=== PATIENT | female | born 1950 | race Caucasian/White ===

== ENCOUNTER 2018-07-13 09:04 | Outpatient (RCR) | payer OTHER | END 2018-07-13 09:30 | disposition still patient (30) | LOC: PT 09:04 | DX: M54.2 Cervicalgia (principal) ==

== ENCOUNTER → 2021-01-09 | Outpatient (CLI) | payer MEDICARE, OTHER | LOC: RAD 07:25 | DX: J94.8 Other specified pleural conditions (principal) ==

== ENCOUNTER → 2021-02-27 | Outpatient (CLI) | payer MEDICARE, OTHER | LOC: RAD 12:36 | DX: R07.89 Other chest pain (principal); R05 Cough | CPT/HCPCS: Q9967 ==

== ENCOUNTER 2021-04-08 09:37 | Outpatient (RCR) | payer MEDICARE, OTHER | END 2021-04-16 17:00 | disposition home or self-care (01) | LOC: PT 09:37 | DX: M25.552 Pain in left hip (principal) ==

== ENCOUNTER 2021-05-13 07:47 | Outpatient (RCR) | payer MEDICARE, OTHER | END 2021-06-05 23:59 | disposition home or self-care (01) | LOC: PT 07:47 | DX: M70.62 Trochanteric bursitis, left hip (principal) ==

== ENCOUNTER 2021-06-09 09:00 | Outpatient (RCR) | payer MEDICARE, OTHER | END 2021-07-06 | disposition home or self-care (01) | LOC: PT | DX: M70.62 Trochanteric bursitis, left hip (principal) ==

== ENCOUNTER → 2021-07-23 | Day surgery (SDC) | payer MEDICARE, OTHER | LOC: MSO 07:07 | DX: Z12.11 Encounter for screening for malignant neoplasm of colon (principal); D12.5 Benign neoplasm of sigmoid colon; D12.8 Benign neoplasm of rectum; K62.1 Rectal polyp; I25.10 Atherosclerotic heart disease of native coronary artery without angina pectoris; E03.9 Hypothyroidism, unspecified; J45.909 Unspecified asthma, uncomplicated; G47.33 Obstructive sleep apnea (adult) (pediatric); F32.A Depression, unspecified; F41.9 Anxiety disorder, unspecified; Z99.89 Dependence on other enabling machines and devices; Z79.82 Long term (current) use of aspirin; Z87.891 Personal history of nicotine dependence; Z79.899 Other long term (current) drug therapy; Z79.01 Long term (current) use of anticoagulants; Z79.890 Hormone replacement therapy; Z90.710 Acquired absence of both cervix and uterus; Z98.51 Tubal ligation status; Z80.0 Family history of malignant neoplasm of digestive organs | CPT/HCPCS: 00811; J2704; J7120 ==

== ENCOUNTER 2023-01-04 08:00 | Outpatient (RCR) | payer MEDICARE, OTHER | END 2023-02-03 | disposition home or self-care (01) | LOC: PT | DX: M54.50 Low back pain, unspecified (principal); M25.569 Pain in unspecified knee ==

== ENCOUNTER 2023-06-20 09:18 | Outpatient (RCR) | payer MEDICARE, OTHER | END 2023-07-06 | disposition home or self-care (01) | LOC: PT | DX: M25.512 Pain in left shoulder (principal); M54.50 Low back pain, unspecified; Z98.890 Other specified postprocedural states ==

== ENCOUNTER 2023-07-07 08:29 | Outpatient (RCR) | payer MEDICARE, OTHER | END 2023-08-04 | disposition home or self-care (01) | LOC: PT | DX: M25.512 Pain in left shoulder (principal); M54.50 Low back pain, unspecified ==

== ENCOUNTER → 2023-07-15 | Outpatient (CLI) | payer MEDICARE, OTHER ==
[2023-07-15 12:06] LABS: CALCIUM 10.1 mg/dL (8.3-10.5)
== END ==
LOC: LAB 11:21
PROVIDERS: Family Medicine
DX: I25.10 Atherosclerotic heart disease of native coronary artery without angina pectoris (principal); E11.59 Type 2 diabetes mellitus with other circulatory complications; E03.4 Atrophy of thyroid (acquired)

== ENCOUNTER 2023-08-24 16:49 | Emergency (ER) | payer MEDICARE, OTHER ==
[~2023-08-24] VITALS: Ht 160 cm; Wt 94.1 kg
[2023-08-24] MEDS ORDERED: ISOSORBIDE DINI30 M1 PO (16:59)
[2023-08-24] MEDS ORDERED: CLOPIDOGREL PO (16:59)
[2023-08-24] MEDS ORDERED: UNITHROID150 MCG PO (16:59)
[2023-08-24] MEDS ORDERED: EZALLOR SPRINKL40 MG PO (17:00)
[2023-08-24] MEDS ORDERED: KAPSPARGO SPRIN25 MG PO (17:00)
[2023-08-24] MEDS ORDERED: GLUCOPHAGE PO (17:00)
[2023-08-24] MEDS ORDERED: CALCIUM500 M1 PO (17:01)
[2023-08-24] MEDS ORDERED: ASPIRIN 81M81 MG/TA2 PO (17:01)
[2023-08-24 17:38] LABS: ALBUMIN 4.2 g/dL (3.4-4.8); SODIUM 137 mmol/L (136-145)
[2023-08-24 17:39] LABS: CALCIUM 9.7 mg/dL (8.3-10.5)
[2023-08-24 17:40] LABS: GLUCOSE 110 mg/dL (65-105)
[2023-08-24 17:42] LABS: CARBON DIOXIDE 23 mmol/L (23-31); HEMATOCRIT 36.1 % (37.0-47.0); HEMOGLOBIN 11.8 g/dL (12.5-16.0); MEAN CELL VOLUME 91 fl (78-100); MEAN CORPUSCULAR HEMOGLOBIN 30 pg (27-31); MEAN CORPUSCULAR HGB CONC 33 g/dL (33-37); MEAN PLATELET VOLUME 9.5 fl (7.4-10.4); PLATELET COUNT 253 K/mm3 (130-400); RED BLOOD COUNT 3.96 M/mm3 (4.10-5.30); RED CELL DISTRIBUTION WIDTH 12.3 % (11.5-14.5); TOTAL BILIRUBIN 0.3 mg/dL (0.2-1.2); WHITE BLOOD COUNT 7.4 K/mm3 (4.8-10.8)
[2023-08-24 17:46] LABS: AST-SGOT 20 U/L (5-34)
[2023-08-24 17:47] LABS: ALT/SGPT 20 U/L (0-55)
[2023-08-24 17:53] LABS: TROPONIN-I < 0.030 ng/mL (0.00-0.033)
[2023-08-24 17:55] LABS: BAND 3 % (0-10)
[2023-08-24 17:56] LABS: LYMPHOCYTE 7 % (20-51); MONOCYTE 15 % (3-10)
[2023-08-24 17:57] LABS: NEUTROPHILS 74 % (42-75)
[2023-08-24] MEDS ORDERED: predniSONE 10 MG,predniSONE 50 MG PO ONE (18:30)
[2023-08-24] MEDS ORDERED: PREDNISONE20 MG PO (18:30)
[2023-08-24] MEDS ORDERED: PAXLOVID 300-11 EACH PO (18:30)
[2023-08-24 18:51] VITALS: BP 146/97
== END 2023-08-24 18:55 | disposition home or self-care (01) ==
LOC: ED 16:49
PROVIDERS: Family Medicine
DX: U07.1 COVID-19 (principal); R06.02 Shortness of breath; R05.9 Cough, unspecified; Z99.81 Dependence on supplemental oxygen; R50.9 Fever, unspecified; R52 Pain, unspecified
CPT/HCPCS: J7512

== ENCOUNTER → 2023-10-13 | Outpatient (CLI) | payer MEDICARE ==
[~2023-10-13] MED LIST: ASPIRIN 81M81 MG/TA2 PO; CALCIUM500 M1 PO; CLOPIDOGREL PO; EZALLOR SPRINKL40 MG PO; GLUCOPHAGE PO; ISOSORBIDE DINI30 M1 PO; KAPSPARGO SPRIN25 MG PO; PAXLOVID 300-11 EACH PO; PREDNISONE20 MG PO; UNITHROID150 MCG PO
== END ==
LOC: LAB 12:12
DX: E11.59 Type 2 diabetes mellitus with other circulatory complications (principal); E11.29 Type 2 diabetes mellitus with other diabetic kidney complication

== ENCOUNTER → 2024-01-11 | Outpatient (CLI) | payer MEDICARE ==
[2024-01-11 14:27] LABS: HEMATOCRIT 39.2 % (37.0-47.0); HEMOGLOBIN 12.4 g/dL (12.5-16.0); MEAN PLATELET VOLUME 9.3 fl (7.4-10.4); RED BLOOD COUNT 4.13 M/mm3 (4.10-5.30); RED CELL DISTRIBUTION WIDTH 12.2 % (11.5-14.5); WHITE BLOOD COUNT 7.5 K/mm3 (4.8-10.8)
[2024-01-11 14:37] LABS: CALCIUM 10.5 mg/dL (8.3-10.5)
== END ==
LOC: LAB 14:12
PROVIDERS: Family Medicine
DX: E11.59 Type 2 diabetes mellitus with other circulatory complications (principal); E03.4 Atrophy of thyroid (acquired); R53.83 Other fatigue

== ENCOUNTER → 2024-01-26 | Outpatient (CLI) | payer MEDICARE | LOC: LAB 08:01 | DX: E03.4 Atrophy of thyroid (acquired) (principal) ==

== ENCOUNTER → 2024-03-08 | Outpatient (CLI) | payer MEDICARE | LOC: LAB 07:34 | DX: E03.4 Atrophy of thyroid (acquired) (principal) ==

== ENCOUNTER → 2024-08-24 | Outpatient (CLI) | payer MEDICARE ==
[~2024-08-24] VITALS: Ht 152.4 cm; Wt 97.5 kg
[~2024-08-24] MED LIST changes: +Regadenoson 0.08 MG/ML 5 ML VIAL IV SCH
== END ==
LOC: CARDREHAB 08-10 09:34
DX: I25.10 Atherosclerotic heart disease of native coronary artery without angina pectoris (principal)
CPT/HCPCS: A9500; J2785

== ENCOUNTER → 2024-09-12 | Outpatient (CLI) | payer MEDICARE ==
[~2024-09-12] MED LIST changes: -Regadenoson 0.08 MG/ML 5 ML VIAL IV SCH
== END ==
LOC: LAB 07:58
DX: I65.22 Occlusion and stenosis of left carotid artery (principal)

== ENCOUNTER → 2024-09-14 | Outpatient (CLI) | payer MEDICARE ==
[~2024-09-14] MED LIST changes: +Iohexol 350 - 100 ML VIAL IV ONE; +NS 100 ML IV ONE
== END ==
LOC: RAD 09:07
DX: I65.22 Occlusion and stenosis of left carotid artery (principal)
CPT/HCPCS: Q9967